=== PATIENT | female | born 1975 | race Caucasian/White ===

== ENCOUNTER 2020-02-17 12:48 | Emergency (ER) | payer OTHER, SELFPAY ==
[2020-02-17 12:58] VITALS: BP 140/75; PULSE 98; RESP 16; TEMP 36.8; O2SAT 98; BMI 22.4
--- NOTE | 2020-02-17 14:11 | ED.BACK ---
HPI - Back Pain/Injury <DELPHINE Gr - Last Filed: 02/17/20 18:13> General Chief Complaint: Back Pain/Injury Stated Complaint: low back pain Time Seen by Provider: 02/17/20 13:09 Source: patient History of Present Illness HPI Narrative: 44yo female presents to the ED left-sided sciatica back pain. She states she has chronic back pain issues, has had approximately 3 surgeries to L5 in the past. She has had left sided hip and back pain for the past month. She recently traveled to an airport and carried large heavy suitcases and has reported increasing pain on the left side for the past few days. Patient states the pain is sharp, stabbing, intermittent worse with certain leg positions such as elevating her leg and placing weight on it. She denies any falls, she states this is similar pain that she has had in the past. She is open again MRI. She has been taking Advil which decreases the pain. She denies any loss of bowel or bladder control, saddle paresthesias, trauma to the area, nausea, vomiting, diarrhea, chest pain, shortness of breath, or any other concerns. Related Data Previous Rx's Medication Instructions Recorded prednisone 40 mg PO DAILY 5 Days #10 tab 02/17/20 Review of Systems <DELPHINE Gr - Last Filed: 02/17/20 18:13> Review of Systems Narrative: REVIEW OF SYSTEMS: GENERAL: Denies fever or chills. HENT: No head trauma. CARDIOVASCULAR: No chest pain. RESPIRATORY: No shortness of breath or cough. GASTROINTESTINAL: No nausea, vomiting, or diarrhea. GENITOURINARY: No flank pain or dysuria. No saddle paresthesias. No loss of bowel or bladder control MUSCULOSKELETAL: Complains of left hip and back pain, see HPI. INTEGUMENTARY: No rash, lesions, or pruritus. NEURO: Reports shooting nerve pain to left side, see HPI. PSYCH: No behavior or mood changes. Patient History <DELPHINE Gr - Last Filed: 02/17/20 18:13> Medical History (Updated 02/17/20 @ 14:15 by DELPHINE Gr) Chronic back pain Social History Smoking Status: Never smoker Smoking Status: Never smoker Substance Use Type: does not use Exam <DELPHINE Gr - Last Filed: 02/17/20 18:13> Initial Vital Signs Initial Vital Signs: Vital Signs Temperature 98.3 F 02/17/20 12:58 Pulse Rate 98 H 02/17/20 12:58 Respiratory Rate 16 02/17/20 12:58 Blood Pressure 140/75 02/17/20 12:58 Pulse Oximetry 98 02/17/20 12:58 PHYSICAL EXAMINATION: GENERAL: Well groomed, alert, and cooperative. Answers questions promptly and appropriately. Vital signs noted. HENT: Normocephalic, atraumatic. EYES: Symmetrical, sclera white, no periorbital swelling. CARDIOVASCULAR: Regular rate. RESPIRATORY: Normal respiratory rate, trachea midline, airway patent. No stridor, nasal flaring or accessory muscle use. MUSCULOSKELETAL:+ straight straight leg test to left side. No tenderness with palpation to left exterior hip, thigh, knee, or foot. Normal gait and coordination. Equal tone and mass bilaterally. EXTREMITIES: CMS intact. Pedal pulses 2+ and intact bilaterally. SKIN: Warm, dry, soft, appropriate color for ethnicity. No lesions, rashes, or wounds. NEURO: Alert and Oriented X 3. No sensory deficits. PSYCH: Appropriate affect and mood. <Den Pinon DO - Last Filed: 02/17/20 18:36> Initial Vital Signs Initial Vital Signs: Vital Signs Temperature 98.3 F 02/17/20 12:58 Pulse Rate 98 H 02/17/20 12:58 Respiratory Rate 16 02/17/20 12:58 Blood Pressure 140/75 02/17/20 12:58 Pulse Oximetry 98 02/17/20 12:58 Course <DELPHINE Gr - Last Filed: 02/17/20 18:13> Course Course Narrative: Discussed Toradol injection with patient, patient recently took Advil approximately 3 hours ago, so Toradol injection was deferred. Discussed in detail with patient and that MRIs or PT cannot be ordered from the ED, referral was placed for an orthopedic. Also encouraged her to follow with PCP as she may be able to get a sooner. Vital Signs Vital signs: Vital Signs - 8 hr 02/17/20 12:58 Temperature 98.3 F Pulse Rate 98 H Respiratory Rate 16 Blood Pressure 140/75 Pulse Oximetry 98 <Den Pinon DO - Last Filed: 02/17/20 18:36> Vital Signs Vital signs: Vital Signs - 8 hr 02/17/20 12:58 Temperature 98.3 F Pulse Rate 98 H Respiratory Rate 16 Blood Pressure 140/75 Pulse Oximetry 98 [facility] - Back Pain/Injury <BRITTANY GrP - Last Filed: 02/17/20 18:13> Medical Records Attestation: I reviewed the patient's medical records. Lab Data Attestation: I reviewed the patient's lab results. [facility] Narrative Medical decision making narrative: History and examination concerning for sciatica given history of chronic back pain, recent surgeries, and positive straight leg test. Less likely trauma as patient declines any traumatic injury, no bruising, erythema, or concerns for traumatic injury. Discussed options of prednisone to help with nerve inflammation given recent exacerbation. Patient was agreeable to trying this plan. Patient requested MRI and follow up, discussed MRI scan to be ordered from the emergency department, referral was placed for ortho and she was encouraged to follow up with PCP as well for discussions of possible physical therapy and or further imaging if PCP deems appropriate at this time. Discussed possible use of gabapentin, patient declined this time. Counseled about appropriate use of Advil. Return precautions given for new or worsening symptoms. Less concern for cauda equina given lack of saddle paresthesias or loss of bowel or bladder control. Discharge Plan Departure Patient Disposition: Home Clinical Impression: Sciatica Qualifiers: Laterality: left Qualified Code(s): M54.32 - Sciatica, left side Back pain Qualifiers: Back pain location: low back pain Chronicity: acute Back pain laterality: left Sciatica presence: with sciatica Sciatica laterality: sciatica of left side Qualified Code(s): M54.42 - Lumbago with sciatica, left side Instructions: DI for Back Pain With Sciatica Activity Restrictions/Additional Instructions: Thank you for entrusting me with your care today. As discussed, it appears that your pain is most likely caused by nerve inflammation and/or compression. I have prescribed you prednisone which is a steroid that helps reduce nerve inflammation. This can cause gastric upset and or fatigue. I have referred you to an orthopedic, please given a call either today or tomorrow to schedule an appointment. I suggest following up with her primary care provider as well to discuss further testing and/or physical therapy. Return emergency department for any new or worsening symptoms such as loss of bowel or bladder control or saddle paresthesias or any other concerns. Prescriptions: New prednisone 20 mg tablet 40 mg PO DAILY 5 Days Qty: 10 RF: 0 Referrals: Pilo Palomino MD [Physician] - <Den Pinon DO - Last Filed: 02/17/20 18:36> Cosign ED Attending Cosignature Attestation: Dr Pinon Co-Sign Statement: I was available for consultation during this patient's emergency department visit. This chart is signed by myself for administrative purposes only. I did not have direct contact with this patient during this visit. They were seen independently by the APC.
== END 2020-02-17 14:20 | disposition home or self-care (01) ==
PROVIDERS: Emergency Provider Nurse Practitioner
DX: M54.42 Lumbago with sciatica, left side (principal)
CPT/HCPCS: 99281

== ENCOUNTER → 2020-03-24 15:45 | Outpatient (CLI) | payer OTHER, MEDICAID, SELFPAY ==
--- NOTE | 2020-03-24 | DI.MRI.S_ITS ---
PROCEDURE: MR LUMBAR SPINE WO/W CON INDICATIONS: LEFT LEG PAIN, LBP TECHNIQUE: Noncontrast sagittal T1 spin echo and T2 fast spin echo, sagittal STIR, axial T1 and T2 fast spin echo through the lumbar spine. In cases with scoliosis, additional coronal T2 fast spin echo may be performed. After the administration of contrast, sagittal and axial T1 spin echo with fat saturation through the lumbar spine. COMPARISON: [facility] [place], CR, XR LUMBAR SPINE 2 OR 3 VIEWS, 03/08/2020, 16:36. FINDINGS: Image quality: Excellent. Alignment and curvature: 5 lumbar type vertebral bodies are present by plain film. There is mild, grade 1 retrolisthesis of L2 on L3, L3 on L4, and L5 on S1. Marrow: Marrow is of normal overall signal. No acute vertebral body compression fractures. No suspicious marrow enhancement. Mild reactive signal within the endplates adjacent to the L3-L4, L4-L5, and L5-S1 intervertebral discs. Spinal cord: Conus medullaris terminates at the upper L2 level. Visualized spinal cord demonstrates normal signal, without suspicious enhancement. Paraspinous soft tissues: No paravertebral masses or abnormal enhancement. L1-L2: Mild disc desiccation and diffuse disc bulge. No significant canal, or foraminal stenosis. L2-L3: Mild disc desiccation and diffuse disc bulge. Mild facet and ligamentum flavum hypertrophy. Mild epidural lipomatosis. Mild canal stenosis. No foraminal stenosis. L3-L4: Moderate disc desiccation. Mild diffuse disc bulge. Mild facet and ligamentum flavum hypertrophy. Mild epidural lipomatosis. Central annular tear. Mild canal stenosis. Mild bilateral foraminal stenosis. L4-L5: Moderate disc height loss and desiccation. Mild diffuse disc bulge with superimposed left paracentral disc extrusion which extends inferiorly within the lateral recess. There is mild facet and ligamentum flavum hypertrophy. Mild epidural lipomatosis. Moderate canal stenosis. Mild bilateral foraminal stenosis. Compression and posterior deviation of the left L5 nerve root within the lateral recess. L5-S1: Moderate disc height loss and desiccation. Mild diffuse disc bulge with superimposed broad-based left paracentral protrusion. Mild bilateral facet hypertrophy. Mild canal stenosis. Mild right and moderate left foraminal stenosis. IMPRESSION: 1. Multilevel degenerative disc and facet disease, as well as ligamentum flavum hypertrophy and epidural lipomatosis. 2. Mild multilevel canal stenosis. 3. Multilevel foraminal stenoses, worst on the left at L5-S1 where there is moderate foraminal stenosis. 4. L4-L5 disc extrusion, causing left L5 nerve root compression. Recommend correlation with clinical symptoms to ascertain relevance of this finding. Dictated by: Flaca Dial M.D. on 03/25/2020 at 9:13 Approved by: Flaca Dial M.D. on 03/25/2020 at 9:18
== END ==
PROVIDERS: Referring Provider Orthopaedic Surgery; Visit Provider Orthopaedic Surgery
DX: M79.605 Pain in left leg (principal); M54.5 Low back pain; M48.061 Spinal stenosis, lumbar region without neurogenic claudication; E88.2 Lipomatosis, not elsewhere classified; M51.16 Intervertebral disc disorders with radiculopathy, lumbar region
CPT/HCPCS: 72158; A9579

== ENCOUNTER → 2022-08-22 11:23 | Outpatient (CLI) | payer OTHER, MEDICAID, SELFPAY ==
--- NOTE | 2022-08-22 | DI.RAD.S_ITS ---
PROCEDURE: XR FACIAL BONES 3V INDICATIONS: Cyst and mucocele of nose and nasal sinus TECHNIQUE: 3 views of the facial bones were acquired. COMPARISON: None. FINDINGS: Sinuses: Visualized sinuses demonstrate no air-fluid levels. 1.6 centimeter opacity in the right frontal sinus. Bones: No fractures. No suspicious bony lesions. Orbital rims and zygomatic arches appear intact. Soft tissues: No suspicious soft tissue densities. IMPRESSION: 1.6 centimeter opacity in the right frontal sinus which could represent mucous retention cyst, polyp or mucocele. Consider CT scan of paranasal sinus for definitive characterization. Dictated by: Brenda Anne MD, PhD on 08/22/2022 at 13:20 Approved by: Brenda Anne MD, PhD on 08/22/2022 at 13:22
== END ==
PROVIDERS: PCP Registered Nurse; Referring Provider Registered Nurse; Visit Provider Registered Nurse
DX: J34.1 Cyst and mucocele of nose and nasal sinus (principal)
CPT/HCPCS: 70140

== ENCOUNTER → 2023-11-30 08:14 | Outpatient (CLI) | payer OTHER, MEDICAID, SELFPAY ==
--- NOTE | 2023-11-30 08:17 | DI.MG.S_ITS ---
BILATERAL DIGITAL SCREENING MAMMOGRAM 3D/2D WITH CAD: 11/30/2023 No prior exams were available for comparison. Both breasts are heterogeneously dense, which may obscure small masses (category c / 51-75% glandular tissue). Current study was also evaluated with a Computer Aided Detection (CAD) system. No significant masses, calcifications, or other findings are seen in either breast. IMPRESSION: NEGATIVE There is no mammographic evidence of malignancy. A 1 year screening mammogram is recommended. Based on the Tyrer Cuzick model (a risk assessment model) the patient's lifetime risk is 10.8% and her 10 year risk is 2.5%. According to the ACR, ACS, and NCCN guidelines, an annual breast MRI exam along with mammogram is recommended if the patient's lifetime risk is 20% or greater. This exam was interpreted at Station ID: [id number]. NOTE: For mammograms, a report in lay terms will be sent to the patient. Approximately 15% of breast malignancies will not be visualized mammographically. In the management of a palpable breast mass, a negative mammogram must not discourage biopsy of a clinically suspicious lesion. Electronically Signed By: Christian gil/joanna:11/30/2023 16:53:13 letter sent: Normal Exam ACR BI-RADS Category 1: Negative [id number]
== END ==
LOC: MAMMO 08:16
PROVIDERS: PCP Registered Nurse; Referring Provider Registered Nurse; Visit Provider Registered Nurse
DX: Z12.31 Encounter for screening mammogram for malignant neoplasm of breast (principal)
CPT/HCPCS: 77063; 77067

== ENCOUNTER → 2024-12-01 08:43 | Outpatient (CLI) | payer OTHER, SELFPAY ==
--- NOTE | 2024-12-01 08:44 | DI.MG.S_ITS ---
MM screening mammo BI: 12/01/2024. BI-RADS: 1 CLINICAL: 49-year old female for bilateral screening mammogram. Tyrer-Cuzick lifetime risk of 9.5%. No personal or first-degree family history of breast cancer. PRIOR EXAMS 11/30/2023. MAMMOGRAPHY TECHNIQUE: 2D and 3D (tomosynthesis) digital mammographic views obtained, with additional images as needed for full coverage. Current study was also evaluated with a Computer Aided Detection (CAD) system. DENSITY C. The breasts are heterogeneously dense, which may obscure small masses. MAMMOGRAPHY FINDINGS Bilateral: No suspicious mass, asymmetry, microcalcification, or other abnormality seen. IMPRESSION: * No evidence of malignancy. RECOMMENDATIONS Bilateral * Annual screening mammography. OVERALL ASSESSMENT CATEGORY BI-RADS-1: Negative. The [employer] recommends annual screening mammography beginning at age 40 for women with average risk of breast cancer. ELECTRONICALLY SIGNED: Crista Castro M.D. on 12/01/2024 at 12:17:27 PM PT Interpreting Station ID: [id number]
== END ==
LOC: MAMMO 08:44
PROVIDERS: PCP Registered Nurse; Referring Provider Registered Nurse; Visit Provider Registered Nurse
DX: Z12.31 Encounter for screening mammogram for malignant neoplasm of breast (principal); R92.333 Mammographic heterogeneous density, bilateral breasts
CPT/HCPCS: 77063; 77067

== ENCOUNTER → 2025-02-26 12:11 | Outpatient (CLI) | payer OTHER, SELFPAY ==
--- NOTE | 2025-02-26 12:16 | DI.RAD.S_ITS ---
PROCEDURE: XR KNEE RT 4V INDICATIONS: M25.461 TECHNIQUE: 4 views of the knee were acquired. COMPARISON: None. FINDINGS: Bones: No fractures or dislocations. No significant patellar subluxation. Mild medial femoral tibial compartment joint space narrowing and subchondral sclerosis is seen. No suspicious bony lesions. Soft tissues: Small to moderate suprapatellar joint effusion. No suspicious soft tissue calcifications. IMPRESSION: No acute fracture or dislocation. Mild medial femoral tibial compartment osteoarthritis and small to moderate joint effusion. Dictated by: Andrew Duenas M.D. on 02/26/2025 at 14:41 Approved by: Andrew Duenas M.D. on 02/26/2025 at 14:43
== END ==
PROVIDERS: PCP Registered Nurse; Referring Provider Registered Nurse; Visit Provider Registered Nurse
DX: M17.11 Unilateral primary osteoarthritis, right knee (principal); M25.461 Effusion, right knee
CPT/HCPCS: 73564

== ENCOUNTER → 2025-02-28 09:55 | Outpatient (CLI) | payer OTHER, SELFPAY ==
--- NOTE | 2025-02-28 09:56 | DI.MRI.S_ITS ---
PROCEDURE: MR LUMBAR SPINE WO CON INDICATIONS: lumbar radiculopathy TECHNIQUE: Noncontrast sagittal T1 spin echo and T2 fast echo, sagittal STIR, and T2 fast spin echo through the lumbar spine. In cases with scoliosis, additional coronal T2 fast spin echo may be performed. COMPARISON: MR, MR LUMBAR SPINE WO/W CON, 03/24/2020, 16:25. FINDINGS: Image quality: Excellent. Alignment and Curvature: There is trace retrolisthesis of L3 on L4. Bone Marrow: Marrow is of normal overall signal. No acute vertebral body compression fractures. Spinal Cord: Conus medullaris terminates at the L1-2 level. Visualized cord demonstrates normal signal and size. Paraspinous Soft Tissues: No paravertebral masses. Discs: Severe disc location is present at L5-S1, moderate L3-4, L4-5. T12-L1: No disc bulge, spinal stenosis or foraminal narrowing. L1-L2: No disc bulge, spinal stenosis or foraminal narrowing. L2-L3: Minimal disc bulge without spinal stenosis or foraminal narrowing. L3-L4: Mild disc bulge without spinal stenosis. Facet and ligamentum flavum hypertrophy as well as epidural lipomatosis is present. No appreciable foraminal narrowing. L4-L5: Disc bulge with superimposed extrusion causing severe compromise of the left lateral recess as well as moderate spinal stenosis. Moderate proximal left foraminal narrowing. Facet and ligamentum flavum hypertrophy. L5-S1: Mild disc bulge without spinal stenosis. No foraminal narrowing. IMPRESSION: Most prominent levels L4-5 demonstrating disc bulge with extrusion causing severe compromise the left lateral recess, moderate spinal stenosis and moderate proximal left foraminal narrowing. Dictated by: Xiomara Pichardo M.D. on 03/02/2025 at 13:20 Approved by: Xiomara Pichardo M.D. on 03/02/2025 at 13:26
== END ==
LOC: MRI 09:56
PROVIDERS: PCP Registered Nurse; Referring Provider Registered Nurse; Visit Provider Registered Nurse
DX: M51.16 Intervertebral disc disorders with radiculopathy, lumbar region (principal); M48.061 Spinal stenosis, lumbar region without neurogenic claudication; M54.9 Dorsalgia, unspecified; Z98.890 Other specified postprocedural states
CPT/HCPCS: 72148

== ENCOUNTER → 2025-03-25 12:13 | Outpatient (CLI) | payer OTHER, SELFPAY ==
--- NOTE | 2025-03-25 12:15 | DI.MRI.S_ITS ---
PROCEDURE: MR KNEE RT WO CON INDICATIONS: Concern for displaced bucket-handle tear of meniscus TECHNIQUE: Noncontrast sagittal PD fast spin echo and T2 fast spin echo with fat saturation, sagittal 3-D FLASH with fat saturation; coronal T1 spin echo and PD fast spin echo with fat saturation, and axial PD fast spin echo with fat saturation through the knee. COMPARISON: [facility], CR, XR KNEE RT 4V, 02/26/2025, 12:24. FINDINGS: Image quality: Excellent. Anterior cruciate ligament: Intact. Posterior cruciate ligament: Intact. Medial collateral ligament: Intact. Lateral collateral ligament: Intact. Medial meniscus: Horizontal oblique tearing of the junction of posterior horn and body of the medial meniscus extending to the inner third of the femoral articular surface. Lateral meniscus: Intact. Medial and lateral tendons: The semimembranosus tendon insertions appear intact. Visualized portions of the pes anserinus tendons appear normal. The popliteus tendon is intact. Iliotibial band appears normal. Anterior structures: The quadriceps and patellar tendons appear intact. Denies shallow trochlear groove with lateral patellar tilting and mild lateral patellar subluxation. No edema in the infrapatellar fat pad. Bones: No bone marrow contusions or fractures. Medial femorotibial cartilage: Mild partial-thickness cartilage thinning in the weight-bearing portion of the medial compartment.. Lateral femorotibial cartilage: No focal cartilage defect. Patellofemoral cartilage: Mild surface cartilage irregularity the at the lateral patellar facet. Soft tissues: Moderate joint effusion. Small medial popliteal cyst. The visualized musculature is age-appropriate in bulk. IMPRESSION: 1. Small horizontal oblique tear at the junction of the posterior horn and body extending to the inner third of the femoral articular surface. No displaced flap tear or source for mechanical symptoms is seen. 2. Cruciate and collateral ligaments are intact. No acute trabecular bone injury. Lateral meniscus is intact. 3. Grade 2 chondromalacia in the medial and anterior compartments. 4. 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 5. Moderate joint effusion. Small medial popliteal cyst. Approved by: Dandy Reed M.D. on 03/25/2025 at 13:29
== END ==
PROVIDERS: PCP Registered Nurse; Referring Provider Physician Assistant Surgical; Visit Provider Physician Assistant Surgical
DX: S83.241A Other tear of medial meniscus, current injury, right knee, initial encounter (principal); S83.011A Lateral subluxation of right patella, initial encounter; M94.261 Chondromalacia, right knee; M25.461 Effusion, right knee; M71.21 Synovial cyst of popliteal space [Baker], right knee; X58.XXXA Exposure to other specified factors, initial encounter
CPT/HCPCS: 73721